=== PATIENT | female | born 1975 | race Caucasian/White ===

== ENCOUNTER → 2016-07-02 | Outpatient (REF) | payer BC ==
[~2016-07-02] MED LIST: IBUP80TA PO; PERCOCET PO; PRENTAB55 PO
[2016-07-02 18:27] LABS: THYROID PEROXIDASE ANTIBODY 341.1 U/ML (<60.0)
== END ==
LOC: M LAB REF 16:30
PROVIDERS: ATTEND Internal Medicine
DX: E06.3 Autoimmune thyroiditis (principal)

== ENCOUNTER → 2016-11-11 | Outpatient (REF) | payer OTHER | LOC: M LAB REF 14:58 | PROVIDERS: ATTEND Advanced Practice Midwife | DX: Z12.4 Encounter for screening for malignant neoplasm of cervix (principal); R87.610 Atypical squamous cells of undetermined significance on cytologic smear of cervix (ASC-US) ==

== ENCOUNTER → 2016-11-19 | Outpatient (CLI) | payer OTHER ==
--- NOTE | 2016-11-20 09:06 | REP ---
Clinical: Pelvic pain and abnormal uterine bleeding . Technique: Transabdominal pelvic ultrasound followed by transvaginal examination for better evaluation of the endometrium and adnexa with color Doppler evaluation of the ovaries. Findings: Bladder is unremarkable and measures 11.1 x 6.4 x 12.3 cm . Heterogeneous anteverted uterus measures 8.2 x 3.8 x 5.0 cm. The endometrial complex measures 6.9 mm thickness. A right posterior submucosal fibroid measures 1.5 cm diameter. No further uterine or endometrial abnormalities are appreciated. Bilateral ovaries are normal in appearance and vascularity without evidence for torsion. Right ovary measures 2.8 x 1.7 x 1.8 cm ; R I = 0.54 . Left ovary measures 3.8 x 1.7 x 2.6 cm with 1.8 cm involuting hemorrhagic cyst ; R I = 0.54 . No pelvic fluid or adnexal mass lesion . Impression: 1. 1.5 cm posterior submucosal fibroid. 2. 1.8 cm involuting hemorrhagic left ovarian cyst. Signed by South Baptiste MD 11/20/2016 08:59 A
== END ==
LOC: M SMT 08:44
PROVIDERS: ATTEND Advanced Practice Midwife
DX: N92.0 Excessive and frequent menstruation with regular cycle (principal)